=== PATIENT | female | born 1990 | race African-American/Black ===

== ENCOUNTER 2017-01-09 14:41 | Emergency (ER) | payer OTHER ==
[2017-01-09 14:47] VITALS: BP 118/85; PULSE 77; TEMP 98.4; BMI 22.1
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
== END 2017-01-09 16:21 | disposition home or self-care (01) ==
LOC: FER 14:41
DX: S80.01XA Contusion of right knee, initial encounter (principal); X58.XXXA Exposure to other specified factors, initial encounter; Y93.89 Activity, other specified; Y92.159 Unspecified place in reform school as the place of occurrence of the external cause; Y99.0 Civilian activity done for income or pay; F17.210 Nicotine dependence, cigarettes, uncomplicated
CPT/HCPCS: 73560-TC-RT; 99282-25